=== PATIENT | male | born 1940 | race Caucasian/White ===

== ENCOUNTER 2021-09-27 23:18 | Emergency (ER) | payer MEDICARE, SELFPAY ==
[2021-09-27 23:28] VITALS: BP 139/83; PULSE 80; RESP 18; TEMP 36.4; O2SAT 95; BMI 25.0
--- NOTE | 2021-09-27 23:36 | CRLHL7_ITS ---
For Patients: As a result of the Century Cures Act, medical imaging exams and procedure reports are released immediately into your electronic medical record. You may view this report before your referring provider. If you have questions, please contact your health care provider. INDICATION: Status post fall. COMPARISON: None available. TECHNIQUE: CT examination of the head was performed with 3 mm thick axial and 2 mm thick coronal and sagittal sections without intravenous contrast. Images were obtained from the vertex of the skull through the skull base, and I examined the images with the brain and bone windows. Please note that all CT scans at this facility use dose modulation, iterative reconstruction, and/or weight-based dosing when appropriate to reduce radiation dose to as low as reasonably achievable. FINDINGS: : There is moderate dilatation of the ventricles and mild dilatation the sulci representing moderate, age-appropriate central atrophy. Normal pressure hydrocephalus cannot be entirely excluded. The brain is otherwise normal in appearance for the patient`s age on today`s study, with no sign of mass lesion, mass effect, hemorrhage, or edema. Incidental note is made of a partially empty sella, a common finding in a patient of this age. The visualized portions of the orbits are normal in appearance. Mucous retention cysts are seen in both maxillary sinuses. There is mild mucosal thickening in both maxillary sinuses from mild chronic sinusitis. The frontal sinuses are absent. The rest of the visualized portions of the paranasal sinuses and mastoids are clear. The osseous structures are normal in their appearance with no sign of abnormality in the skull base or calvarium. IMPRESSION: No sign of closed head injury. 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 Cannot exclude normal pressure hydrocephalus. Please note that all CT scans at this facility use dose modulation, iterative reconstruction, and/or weight-based dosing when appropriate to reduce radiation dose to as low as reasonably achievable. Dictated by Yevgeniy Oh MD @ 09/28/2021 12:04:01 AM (Electronically Signed)
[2021-09-28 00:15] LABS: Basophils Absolute Auto 0.01 K/uL (0.00-0.30); Basophils Percent Auto 0.1 % (0.0-3.0); Eosinophils Absolute Auto 0.12 K/uL (0.00-0.50); Eosinophils Percent Auto 1.8 % (0.0-7.0); Hemoglobin* 13.3 gm/dL (13.5-17.5); Immature Granulocytes Abs Auto 0.04 K/uL (0.00-0.30); Lymphocytes Absolute Auto 1.82 K/uL (0.90-2.90); Lymphocytes Percent Auto 26.9 % (20-44); Mean Corpuscular HGB Conc 35 gm/dL (32-36); Mean Corpuscular Hemoglobin 31 pg (26-34); Mean Corpuscular Volume 90 fL (80-100); Monocytes Percent Auto 10.2 % (0.0-11.0); Neutrophils Absolute Auto 4.09 K/uL (1.7-7.0); Neutrophils Percent Auto 60.4 % (42.0-72.0); Platelet Count* 238 K/uL (140-440); Red Blood Count 4.23 m/uL (4.30-5.90); White Blood Count* 6.77 K/uL (4.50-11.00)
[2021-09-28 00:22] LABS: Slide Review Reflex No
[2021-09-28 00:48] LABS: Albumin* 3.8 g/dL (3.3-5.0); Chloride* 105 mmol/L (96-114); Sodium* 136 mmol/L (135-149)
[2021-09-28 00:49] LABS: Potassium* 3.4 mmol/L (3.6-5.1)
[2021-09-28 00:50] LABS: Creatinine* 0.9 mg/dL (0.5-1.5); Est. Creatinine Clearance* 52.96; Estimated Glomerular Filt Rate 87 ml/min
[2021-09-28 00:51] LABS: Alanine Aminotransferase* 15 U/L (4-50); Alkaline Phosphatase* 54 U/L (40-150); Aspartate Amino Transferase* 20 U/L (12-35); Bilirubin Direct* 0.1 mg/dL (0.0-0.5); Bilirubin Total* 0.2 mg/dL (0.1-1.5); Blood Urea Nitrogen* 19 mg/dL (7-30); Calcium* 8.4 mg/dL (8.4-10.6); Carbon Dioxide* 19 mmol/L (20-32); Glucose* 107 mg/dL (60-115); Total Protein* 6.4 g/dL (6.0-8.3)
[2021-09-28 00:52] LABS: Ethanol* 0.25 % (0.01-0.03)
[2021-09-28 01:25] VITALS: BP 132/78; PULSE 80; RESP 16; TEMP 36.4; O2SAT 98
[2021-09-28 01:26] VITALS: BP 132/78; PULSE 80; RESP 16; TEMP 36.4
--- NOTE | 2021-09-28 02:04 | ED_ITS ---
HPI - General Adult General Chief complaint: Head Injury/Pain Stated complaint: Fall hit head Time Seen by Provider: 09/27/21 23:27 Source: patient and family History of Present Illness HPI narrative: Patient is a 80-year-old man here with his . They were at their daughter's 2nd wedding tonight when he had a fall. His reports that he had had a fair amount to drink, they were out on the dance floor and dance to a couple of songs. They had come back to the table and sat for a little bit. When he stood up, he seemed somewhat unsteady, had grabbed onto the chair which wobbled and this caused him to lose his balance. She thought he had stabilized, but when he started to walk, he fell. She does not believe he hit his head, she thinks that he landed more on his chest. He has denied injury since then, and is mostly frustrated that he is here. He is embarrassed that he fell. He denies any head or neck pain. He denies any chest pain or back pain. Denies any difficulty breathing. Denies any extremity injuries. She had initially been afraid he had a stroke or something, but does now believe that it is probably more that he had too much to drink. She says that he had had several beers as well as several mixed drinks. He denies any recent chest pain, difficulty breathing, exertional symptoms such as shortness of breath, palpitations, weakness, chest pain, or other difficulties. Related Data Home Medications Medication Instructions Recorded Confirmed No Known Home Medications 09/27/21 09/27/21 Allergies Allergy/AdvReac Type Severity Reaction Status Date / Time No Known Drug Allergies Allergy Verified 09/27/21 23:31 Review of Systems Status of ROS: Reports: 10 or more systems reviewed and unremarkable except as noted in History and below [facility] Medical History No significant past medical history Surgical History No significant past surgical history Social History Smoking Status: Never smoker How often do you have a drink containing alcohol: monthly or less How often do you have six or more drinks on one occasion: Never AUDIT-C Alcohol total score: 1 Non-prescribed substance use: denies use Exam Narrative: Exam Narrative: Vital signs as noted above. In general, an alert, nontoxic elderly male. Head: Normocephalic, atraumatic. Eyes: Pupils are equal reactive. Extraocular movements are full. Conjunctivae are normal. ENT: Mucous membranes are moist. Throat is normal. Tongue is midline. Neck: Supple without lymphadenopathy. Nontender to palpation. Heart: Regular rate and rhythm. Systolic murmur heard throughout the precordium. Lungs: Clear bilaterally. No increased work of breathing, crackles or wheezes. Chest is nontender. Abdomen: Soft and nontender. No organomegaly. Back: Nontender to palpation. Extremities: Well perfused. No edema. No calf tenderness. Pulses intact. Atraumatic. Neurologic: Patient is alert and oriented to person and place. Speech is fluent. Face is symmetric. Moves all extremities equally. Gait is largely stable although he required a little bit of monitoring to walk to the bathroom safely. He was just a little bit unsteady. Had a little bit of difficulty with finger-nose testing bilaterally. Speech is slightly slurred. Affect: Somewhat labile, irritable. Skin: Warm and dry. Well perfused. Const: Vital Signs, click to edit/add: Vital Signs - 24 hr 09/27/21 23:28 09/28/21 01:25 09/28/21 01:26 Temperature 97.6 F 97.6 F 97.6 F Pulse Rate [Right Pulse Oximeter] 80 80 80 Respiratory Rate 18 16 16 Blood Pressure [Ri ght Upper Arm] 139/83 132/78 132/78 Pulse Oximetry 95 98 Oxygen Delivery Me thod Room Air Room Air Documenting provider has reviewed patient's vital signs: yes Course Course Hospital Course: On arrival, patient had head CT. I reviewed his head CT, I did not see any evidence of hemorrhage. Final radiology report is as follows:No sign of closed head injury. 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 Cannot exclude normal pressure hydrocephalus. Under the circumstances, I do not suspect normal-pressure hydrocephalus as a likely cause of his symptoms. There is no evidence of intracranial hemorrhage. His labs show normal white blood cell count, hemoglobin of 13.3. At a potassium of 3.4. CO2 was just a little bit low at 19. Otherwise electrolytes are normal, LFTs are normal. His blood alcohol is elevated at 0.25. His presentation is very consistent with alcohol intoxication. He does show minor abnormalities on his neurologic exam, but I think these are very much explained by a blood alcohol of 0.25. His neurologic exam is otherwise nonfocal, and I think his presentation is more consistent with alcohol then was stroke. Like beth, I do not believe that this represents a syncopal episode. He does have evidence of a heart murmur, and I have spoken with them about this. He says that this was noted last fall when he had I believe a physical for an eye surgery. He was told he should have it followed up but he has not yet done that. He is not complaining of any symptoms which suggest significant aortic stenosis. He did not have a syncopal episode tonight by their report, and I suspect that the murmur does not have anything directly to do with his fall tonight. Nonetheless, I recommended that he follow up with Dr. Cullen in clinic so that an echo can be done to further evaluate the murmur. I do not find anything on exam in terms of other injuries at this time. He is ambulatory here with minimal assistance. I think it is reasonable to let him go home in the care of his . If he notes other symptoms tomorrow, would have him return for re-evaluation. Vital Signs Vital signs: Initial Vital Signs Temperature 97.6 F 09/27/21 23:28 Temperature Source Temporal Artery Scan 09/27/21 23:28 Pulse Rate 80 09/27/21 23:28 Respiratory Rate 18 09/27/21 23:28 Blood Pressure 139/83 09/27/21 23:28 Blood Pressure Mean 101 09/27/21 23:28 Blood Pressure Position Sitting 09/27/21 23:28 Pulse Oximetry 95 09/27/21 23:28 Oxygen Delivery Method 09/27/21 23:28 Vital Signs Temperature 97.6 F 09/27/21 23:28 Pulse Rate 80 09/27/21 23:28 Respiratory Rate 18 09/27/21 23:28 Blood Pressure 139/83 09/27/21 23:28 Pulse Oximetry 95 09/27/21 23:28 Oxygen Delivery Method 09/27/21 23:28 Temperature 97.6 F 09/28/21 01:26 Pulse Rate 80 09/28/21 01:26 Respiratory Rate 16 09/28/21 01:26 Blood Pressure 132/78 09/28/21 01:26 Pulse Oximetry 98 09/28/21 01:25 Oxygen Delivery Method 09/28/21 01:25 Medical Decision Making Lab Data Labs: Lab Results 09/28/21 09/28/21 Range/Units 00:05 00:05 WBC 6.77 (4.50-11.00) K/uL RBC 4.23 L (4.30-5.90) m/uL Hgb 13.3 L (13.5-17.5) gm/dL Hct 38.0 (37.0-53.0) % MCV 90 (80-100) fL MCH 31 (26-34) pg MCHC 35 (32-36) gm/dL RDW Coeff of Charlie 13.0 (11.5-15.5) % Plt Count 238 (140-440) K/uL Neut % (Auto) 60.4 (42.0-72.0) % Lymph % (Auto) 26.9 (20-44) % Kimble % (Auto) 10.2 (0.0-11.0) % Eos % (Auto) 1.8 (0.0-7.0) % Baso % (Auto) 0.1 (0.0-3.0) % Neut # (Auto) 4.09 (1.7-7.0) K/uL Lymph # (Auto) 1.82 (0.90-2.90) K/uL Kimble # (Auto) 0.70 (0.00-0.90) K/UL Eos # (Auto) 0.12 (0.00-0.50) K/uL Baso # (Auto) 0.01 (0.00-0.30) K/uL Abs Immat Gran (auto) 0.04 (0.00-0.30) K/uL Sodium 136 (135-149) mmol/L Potassium 3.4 L (3.6-5.1) mmol/L Chloride 105 (96-114) mmol/L Carbon Dioxide 19 L (20-32) mmol/L BUN 19 (7-30) mg/dL Creatinine 0.9 (0.5-1.5) mg/dL Estimated Creat Clear 52.96 Estimated GFR 87 ml/min Glucose 107 (60-115) mg/dL Calcium 8.4 (8.4-10.6) mg/dL Total Bilirubin 0.2 (0.1-1.5) mg/dL Direct Bilirubin 0.1 (0.0-0.5) mg/dL AST 20 (12-35) U/L ALT 15 (4-50) U/L Alkaline Phosphatase 54 (40-150) U/L Total Protein 6.4 (6.0-8.3) g/dL Albumin 3.8 (3.3-5.0) g/dL Ethyl Alcohol 0.25 H (0.01-0.03) % Discharge Plan Discharge Clinical Impression: Alcohol intoxication, Fall, Heart murmur Patient Disposition: Home w/ Parent or Adult Condition: Stable Instructions: Alcohol Intoxication (ED) Additional Instructions: If you notice any additional injuries tomorrow, follow-up with primary care or return. Likewise, return for any worsening confusion, weakness, or other neurologic changes. Please follow-up with Dr. Cullen regarding your heart murmur. Prescriptions: No Action No Known Home Medications Stand Alone Forms: [employer] Info Instructions
== END 2021-09-28 02:29 | disposition home or self-care (01) ==
LOC: ED 09-28 02:26
PROVIDERS: Family Medicine; Emergency Provider Emergency Medicine; PCP Family Medicine
DX: F10.129 Alcohol abuse with intoxication, unspecified (principal); W19.XXXA Unspecified fall, initial encounter; R01.1 Cardiac murmur, unspecified
CPT/HCPCS: 36415; 70450; 80048; 80076; 82077; 85025; 99284